=== PATIENT | female | born 1970 ===

== ENCOUNTER 2024-07-07 21:07 | Emergency (ER) | payer OTHER, SELFPAY ==
[2024-07-07 21:14] VITALS: BP 102/92; PULSE 101; RESP 20; TEMP 36.5; O2SAT 95
--- NOTE | 2024-07-07 21:17 | ED.EAR ---
HPI - Ear Problem General Chief complaint: Ear Stated complaint: Sore Throat Time Seen by Provider: 07/07/24 21:15 Source: patient Mode of arrival: ambulatory Limitations: no limitations History of Present Illness HPI Narrative: this is a 53-year-old female with some left ear pain with some sinus congestion and pressure and pain in the left ear without any drainage external ear is tender with palpation with no fever chills no nausea vomiting or shortness of breath. Complaint: ear pain and decreased hearing Location: left ear Duration: constant Severity: moderate Relieving factors: nothing Exacerbating factors: nothing Associated symptoms ear: decreased hearing and external ear tenderness Related Data Allergies Allergy/AdvReac Type Severity Reaction Status Date / Time erythromycin base Allergy Intermediate Hives / Verified 04/15/16 13:41 Red Face adhesive tape Allergy Unknown Itching Verified 04/15/16 13:41 Review of Systems Review of Systems: All systems reviewed & are unremarkable except as noted in HPI and below PMFSH Past Medical History Medical History Patient denies medical problems Family History Family History Mother Family history of malignant neoplasm Family history of pancreatic cancer Family history of malignant neoplasm of breast in first degree relative Patient's mother is Family history of diabetes mellitus in first degree relative Family history of heart disease in male family member before age 55 Grandparent Family history of malignant neoplasm of male breast Family history of malignant neoplasm of breast Family history of heart disease in male family member before age 55 Diabetes mellitus Father Family history of diabetes mellitus in first degree relative Family history of heart disease in male family member before age 55 Other Family history of allergic disorder Family history of coronary artery disease Social History Social History Smoking status: Never smoker Alcohol intake: current Exam Const: General: healthy appearing and no acute distress Nutritional Appearance: well nourished Orientation/consciousness: patient oriented x3 Limitations: no limitations HENMT: Head: normal to inspection Other: left ear erythematous and bulging with a a blister Eyes: Conjunctivae: conjunctivae normal Pupils: Equal, round and reactive pupils present EOM: EOMs intact bilaterally Neck: Neck: normal visual inspection, no lymphadenopathy and no meningeal signs Chest: Chest palpation & inspection: normal inspection of the chest Resp: Effort & Inspection: normal respiratory effort Auscultation: clear to auscultation bilaterally Cardio: Rate: regular rate Rhythm: regular rhythm Course Course Emergency Course: patient received Toradol 60mg IM as well as antibiotic ear drop as well as p.o. Augmentin. Vital Signs Vital signs: Vital Signs Temperature 36.5 C 07/07/24 21:14 Pulse Rate 101 H 07/07/24 21:14 Respiratory Rate 20 07/07/24 21:14 Blood Pressure 102/92 H 07/07/24 21:14 Pulse Oximetry 95 07/07/24 21:14 Oxygen Delivery Room Air 07/07/24 21:14 Temperature 36.5 C 07/07/24 21:14 Pulse Rate 101 H 07/07/24 21:14 Respiratory Rate 20 07/07/24 21:14 Blood Pressure 102/92 H 07/07/24 21:14 Pulse Oximetry 95 07/07/24 21:14 Oxygen Delivery Room Air 07/07/24 21:14 Medical Decision Making Vital Signs Vital Signs: Vital Signs Temperature 36.5 C 07/07/24 21:14 Pulse Rate 101 H 07/07/24 21:14 Respiratory Rate 20 07/07/24 21:14 Blood Pressure 102/92 H 07/07/24 21:14 Pulse Oximetry 95 07/07/24 21:14 Oxygen Delivery Room Air 07/07/24 21:14 Temperature 36.5 C 07/07/24 21:14 Pulse Rate 101 H 07/07/24 21:14 Respiratory Rate 20 07/07/24 21:14 Blood Pressure 102/92 H 07/07/24 21:14 Pulse Oximetry 95 07/07/24 21:14 Oxygen Delivery Room Air 07/07/24 21:14 Critical Care Time Critical Care Time Critical Care Time: No Discharge Plan Discharge Clinical Impression: Bullous myringitis of left ear Patient Disposition: Home, Self-Care Condition: Stable Instructions: Antibiotic Form, Ear Infection (ED) Additional Instructions: advised to take medication as prescribed and if symptoms persist with primary for referral to research and development director. Prescriptions: New Claritin-D 12 Hour 5-120 mg tablet extended release 12 hr 1 tablet PO Q12H Qty: 10 0RF amoxicillin-pot clavulanate [Augmentin] 500-125 mg tablet 1 tablet PO TID Qty: 30 0RF Cortisporin-TC 3.3-3-10-0.5 mg/mL drops,suspension 4 drp EACH EAR QID 7 Days Qty: 10 0RF naproxen 500 mg tablet 500 mg PO BID PRN (Reason: pain) Qty: 14 0RF Follow-up/Referrals: Antoine,Nicola Montenegro MD [Primary Care Provider] - Time of Disposition: 21:27
[2024-07-07] MEDS: AMOXICILLIN/CLAVULANATE K 875-125 MG TAB 1 TABLET PO (21:29)
[2024-07-07] MEDS: NEOMYCIN/POLYMYXIN/HYDROCORT OT SUSP 10 ML BTL (*BKC) 3 DROP LEFT EAR (21:29)
[2024-07-07] MEDS: KETOROLAC (*BKC) 60 MG/2 ML VIAL IM (21:30)
== END 2024-07-07 21:47 | disposition home or self-care (01) ==
PROVIDERS: Emergency Provider Emergency Medicine; PCP Family Medicine
DX: H73.012 Bullous myringitis, left ear (principal)
CPT/HCPCS: 96372; 99283; A9270; J1885